=== PATIENT | female | born 1960 | race Caucasian/White ===

== ENCOUNTER 2016-07-07 19:04 | Inpatient (IN) | payer MEDICARE, OTHER ==
[~2016-07-07] VITALS: Ht 157.5 cm; Wt 98.0 kg
[~2016-07-07 19:04] MED LIST: CIPR500T94 PO; CYCL10TA2 PO; DOXE10CA PO; FOLI1TAB16 PO; GLIM4TAB PO; LISI10TA2 PO; PREG75CA PO; QUET100T PO; SITA100T PO; VENL150C PO; VENTOLIN HFA18 GM INH
[2016-07-07 21:21] LABS: BILIRUBIN,URINE NEGATIVE (NEG); GLUCOSE,URINE >=1000 mg/dL (NEG); NITRITE,URINE NEGATIVE (NEG); PROTEIN,URINE 30 mg/dL (NEG-TRACE); UROBILINOGEN,URINE 0.2 mg/dL (0.2 mg/dL)
[2016-07-07 21:21] LABS: BASO % 1 % (0-3); EOS % 1 % (0-3); HEMATOCRIT 31.7 % (36.0-47.0); HEMOGLOBIN 10.5 g/dL (12.0-15.5); LYMPH % 15 % (24-48); MEAN CORPUSCULAR HEMOGLOBIN 26 pg (25-35); MEAN CORPUSCULAR HGB CONC 33 g/dL (31-37); MEAN CORPUSCULAR VOLUME 80 fL (79-100); MONO % 6 % (0-9); NEUT % 77 % (31-73); PLATELET COUNT 140 x10^3/uL (140-400); RED BLOOD COUNT 3.98 x10^6/uL (3.50-5.40); RED CELL DISTRIBUTION WIDTH 16.9 % (11.5-14.5); WHITE BLOOD COUNT 6.5 x10^3/uL (4.0-11.0)
[2016-07-07 21:27] LABS: BARBITURATES NEG (NEG); BENZODIAZEPINES NEG (NEG); CANNABINOIDS NEG (NEG); COCAINE NEG (NEG); ETHANOL, URINE NEG (NEG); METHADONE NEG (NEG); OPIATES NEG (NEG); PHENCYCLIDINE NEG (NEG)
[2016-07-07 21:28] LABS: WBC,URINE 0 /HPF (0-4)
[2016-07-07 21:29] LABS: BACTERIA,URINE 0 /HPF (0-FEW); SQUAMOUS EPITHELIAL CELL,UR OCC /LPF
[2016-07-07 21:34] LABS: CALCIUM 9.4 mg/dL (8.5-10.1); CREATININE 1.2 mg/dL (0.6-1.0); GFR 46.5; POTASSIUM 4.2 mmol/L (3.5-5.1)
[2016-07-07 21:37] LABS: ALBUMIN 2.6 g/dL (3.4-5.0); DIRECT BILIRUBIN 0.1 mg/dL (0.0-0.2); TOTAL BILIRUBIN 0.3 mg/dL (0.2-1.0); TOTAL PROTEIN 7.3 g/dL (6.4-8.2)
[2016-07-07 21:39] LABS: ALBUMIN 2.6 g/dL (3.4-5.0); ALBUMIN/GLOBULIN RATIO 0.5 (1.0-1.7); TOTAL BILIRUBIN 0.3 mg/dL (0.2-1.0); TOTAL PROTEIN 7.7 g/dL (6.4-8.2)
--- NOTE | 2016-07-07 22:13 | RAD ---
PROCEDURE CT head and CT cervical spine without intravenous contrast. HISTORY Found on floor by family. Multiple falls. TECHNIQUE Axial images are obtained of the head from the skull base through the vertex without IV contrast Noncontrast CT of the cervical spine was performed. Axial, sagittal, and coronal reconstructions were obtained. Exposure: One or more of the following individualized dose reduction techniques were utilized for this examination: 1. Automated exposure control. 2. Adjustment of the mA and/or kV according to patient size. 3. Use of iterative reconstruction technique. COMPARISON CT head December 22, 2015. FINDINGS CT head: The ventricles are appropriate in size, shape, and location for the patient's age.No obvious intracranial mass, mass-effect, midline shift, hemorrhage or obvious acute infarction is identified.Basilar cisterns are patent. Bone windows demonstrate no acute calvarial abnormality.The visualized paranasal sinuses appear clear. CT C-spine: No acute fracture acute malalignment is identified. No prevertebral soft tissue swelling is seen. Multilevel degeneration is present with facet and uncovertebral hypertrophy as well as degenerative disc disease visualized. IMPRESSION 1. No acute intracranial process. Please note that CT can be relatively insensitive to acute ischemic infarction for up to 24 hours after symptom onset. 2. No acute osseous traumatic injury identified in the cervical spine. Electronically signed by: Abhilash Mancera MD (Jul 07, 2016 22:12:01)
[2016-07-07 22:19] LABS: CREATINE KINASE 102 U/L (26-192); MYOGLOBIN 304 ng/mL (9-82)
--- NOTE | 2016-07-07 22:29 | ED.ADGEN ---
Past Medical History Past Medical History: COPD, Hepatitis, Unknown Additional Past Medical Histor: HEP C AND COPD, UNKNOWN OTHER HX Past Surgical History: Other Additional Past Surgical Histo: unknown Alcohol Use: Occasionally Drug Use: None Adult General Chief Complaint Chief Complaint: ALTERED MENTAL STATUS HPI HPI Patient is a 55 year old woman, history of hepatitis C, COPD, type 2 diabetes mellitus, who presents emergency department via EMS with report of altered mental status. Ramus report, patient was found lying on the ground by family, patient states that she's had several falls, is complaining of pain in her left knee and left ankle. Patient is able to state her name and location however she believes is 2019, and cannot give any information regarding the events of brought her here today. C-collar was placed in the ED. She is denying any other complaints at this time. Denies any ingestions or exposures. Noted be hyperglycemic, glucose of 379 arrival. Review of Systems Review of Systems Constitutional: Denies fever or chills. [] Eyes: Denies change in visual acuity. [] HENT: Denies nasal congestion or sore throat. [] Respiratory: Denies cough or shortness of breath. [] Cardiovascular: Denies chest pain or edema. [] GI: Denies abdominal pain, nausea, vomiting, bloody stools or diarrhea. [] : Denies dysuria. [] Musculoskeletal: Denies back pain, complaining of pain in the left ankle and left knee. Integument: Denies rash. [] Neurologic: Denies headache, focal weakness or sensory changes. [] Endocrine: Denies polyuria or polydipsia. [] Lymphatic: Denies swollen glands. [] Psychiatric: Denies depression or anxiety. [] Current Medications Current Medications Current Medications Medications (Trade) Dose Ordered Sig/Ines Start Time Stop Time Status Last Admin Dose Admin Dextrose 12.5 gm PRN Q15MIN PRN 07/08/16 01:00 Insulin Aspart (Novolog) 0-5 UNITS TIDWMEALS 07/08/16 08:00 Ondansetron HCl (Zofran) 4 mg PRN Q8HRS PRN 07/08/16 01:00 07/09/16 00:59 Sodium Chloride (Iv Sodium Chloride 0.9% 1000ml Bag) 1,000 ml @ 125 mls/hr 1X ONCE 07/08/16 01:00 07/08/16 08:59 Allergies Allergies Allergies Coded Allergies Type Severity Reaction Last Updated Verified No Known Drug Allergies 12/23/15 No Physical Exam Physical Exam Constitutional: Well developed, well nourished, no acute distress, non-toxic appearance. [] HENT: Normocephalic, atraumatic, bilateral external ears normal, oropharynx moist, no oral exudates, nose normal. [] Eyes: PERRLA, EOMI, conjunctiva normal, no discharge. [] Neck: Normal range of motion, no tenderness, supple, no stridor. [] Cardiovascular:Heart rate regular rhythm, no murmur, S1, S2, soft heart sounds. No rubs or gallops. [] Lungs & Thorax: Diminished breath sounds at bases bilaterally, no rhonchi rales or wheezes appreciated. No chest wall crepitus or tenderness. [] Abdomen: Bowel sounds normal, obese, soft, no tenderness, no masses, no rebound , rigidity or guarding, no pulsatile masses. [] Skin: Warm, dry, no erythema, no rash. Patient noted to have small abrasions across her back and buttocks, no evidence of breakdown, patient with ecchymosis noted over the left buttock extending in the left hip area, with mild tenderness in this region. [] Back: No midline or paraspinal tenderness, no CVA tenderness. [] Extremities: Abrasions noted on the medial aspect of the left knee, patient with tenderness to palpation left ankle and left knee, no bony point tenderness or crepitus,, no cyanosis, no clubbing, ROM intact, no edema. [] Neurologic: Alert and oriented X 3, normal motor function, normal sensory function, no focal deficits noted. [] Psychologic: Affect normal, judgement normal, mood normal. [] Current Patient Data Vital Signs Vital Signs Date Time Temp Pulse Resp B/P Pulse Ox O2 Delivery O2 Flow Rate FiO2 07/07/16 19:15 97.9 100 18 116/80 94 Room Air 97.9 Lab Values Laboratory Tests Test 07/07/16 19:40 07/07/16 19:50 07/07/16 22:24 07/07/16 23:35 White Blood Count 6.5x10^3/uL (4.0-11.0) Red Blood Count 3.98x10^6/uL (3.50-5.40) Hemoglobin 10.5g/dL (12.0-15.5) L Hematocrit 31.7% (36.0-47.0) L Mean Corpuscular Volume 80fL (79-100) Mean Corpuscular Hemoglobin 26pg (25-35) Mean Corpuscular Hemoglobin Concent 33g/dL (31-37) Red Cell Distribution Width 16.9% (11.5-14.5) H Platelet Count 140x10^3/uL (140-400) Neutrophils (%) (Auto) 77% (31-73) H Lymphocytes (%) (Auto) 15% (24-48) L Monocytes (%) (Auto) 6% (0-9) Eosinophils (%) (Auto) 1% (0-3) Basophils (%) (Auto) 1% (0-3) Neutrophils # (Auto) 5.0x10^3uL (1.8-7.7) Lymphocytes # (Auto) 1.0x10^3/uL (1.0-4.8) Monocytes # (Auto) 0.4x10^3/uL (0.0-1.1) Eosinophils # (Auto) 0.1x10^3/uL (0.0-0.7) Basophils # (Auto) 0.0x10^3/uL (0.0-0.2) Sodium Level 135mmol/L (136-145) L Potassium Level 4.2mmol/L (3.5-5.1) Chloride Level 100mmol/L (98-107) Carbon Dioxide Level 26mmol/L (21-32) Anion Gap 9 (6-14) Blood Urea Nitrogen 37mg/dL (7-20) H Creatinine 1.2mg/dL (0.6-1.0) H Estimated GFR (Cockcroft-Gault) 46.5 BUN/Creatinine Ratio 31 (6-20) H Glucose Level 379mg/dL (70-99) H Calcium Level 9.4mg/dL (8.5-10.1) Total Bilirubin 0.3mg/dL (0.2-1.0) Direct Bilirubin 0.1mg/dL (0.0-0.2) Aspartate Amino Transferase (AST) 34U/L (15-37) Alanine Aminotransferase (ALT) 41U/L (14-59) Alkaline Phosphatase 160U/L (46-116) H Creatine Kinase 102U/L (26-192) Myoglobin 304ng/mL (9-82) H Troponin I Quantitative < 0.017ng/mL (0.000-0.055) Total Protein 7.3g/dL (6.4-8.2) Albumin 2.6g/dL (3.4-5.0) L Albumin/Globulin Ratio 0.5 (1.0-1.7) L Ethyl Alcohol Level < 10mg/dL (0-10) Urine Collection Type U cath Urine Color Yellow Urine Clarity Clear Urine pH 5.0 Urine Specific [place] 1.025 Urine Protein 30mg/dL (NEG-TRACE) Urine Glucose (UA) >=1000mg/dL (NEG) Urine Ketones (Stick) Negativemg/dL (NEG) Urine Blood Small (NEG) Urine Nitrite Negative (NEG) Urine Bilirubin Negative (NEG) Urine Urobilinogen Dipstick 0.2mg/dL (0.2 mg/dL) Urine Leukocyte Esterase Negative (NEG) Urine RBC 3-5/HPF (0-2) Urine WBC 0/HPF (0-4) Urine Squamous Epithelial Cells Occ/LPF Urine Amorphous Sediment Present/HPF Urine Bacteria 0/HPF (0-FEW) Urine Opiates Screen Neg (NEG) Urine Methadone Screen Neg (NEG) Urine Barbiturates Neg (NEG) Urine Phencyclidine Screen Neg (NEG) Urine Amphetamine/Methamphetamine Neg (NEG) Urine Benzodiazepines Screen Neg (NEG) Urine Cocaine Screen Neg (NEG) Urine Cannabinoids Screen Neg (NEG) Urine Ethyl Alcohol Neg (NEG) O2 Saturation 94% (92-99) Arterial Blood pH 7.39 (7.35-7.45) Arterial Blood pCO2 at Patient Temp 42mmHg (35-46) Arterial Blood pO2 at Patient Temp 71mmHg (75-108) L Arterial Blood HCO3 25mmol/L (21-28) Arterial Blood Base Excess 0mmol/L (-3-3) FiO2 21 Lactic Acid Level 1.3mmol/L (0.4-2.0) Ammonia 21mcmol/L (11-34) Laboratory Tests 07/07/16 19:40 Laboratory Tests 07/07/16 19:40 EKG EKG EC: Sinus tachycardia, heart rate 101 bpm, upright axis, QTC of 429, ND 152, QRS of 84, moderate baseline artifact noted, aside from tachycardia, no other specific ECG abnormalities identified. Abnormal ECG, does not meet STEMI criteria. As interpreted by me. [] Radiology/Procedures Radiology/Procedures [] [facility] [address] [place] [address] IMAGING REPORT Signed PATIENT: WASHINGTON WING ACCOUNT: [id number] : 1960 LOCATION: ER AGE: 55 SEX: F EXAM STATUS: REG ER ORD. PHYSICIAN: LIAM MENDOZA DO REASON: Fall/AMS PROCEDURE: HEAD AND CERVICAL SPINE WO PROCEDURE CT head and CT cervical spine without intravenous contrast. HISTORY Found on floor by family. Multiple falls. TECHNIQUE Axial images are obtained of the head from the skull base through the vertex without IV contrast Noncontrast CT of the cervical spine was performed. Axial, sagittal, and coronal reconstructions were obtained. Exposure: One or more of the following individualized dose reduction techniques were utilized for this examination: 1. Automated exposure control. 2. Adjustment of the mA and/or kV according to patient size. 3. Use of iterative reconstruction technique. COMPARISON CT head December 22, 2015. FINDINGS CT head: The ventricles are appropriate in size, shape, and location for the patient's age.No obvious intracranial mass, mass-effect, midline shift, hemorrhage or obvious acute infarction is identified.Basilar cisterns are patent. Bone windows demonstrate no acute calvarial abnormality.The visualized paranasal sinuses appear clear. CT C-spine: No acute fracture acute malalignment is identified. No prevertebral soft tissue swelling is seen. Multilevel degeneration is present with facet and uncovertebral hypertrophy as well as degenerative disc disease visualized. IMPRESSION 1. No acute intracranial process. Please note that CT can be relatively insensitive to acute ischemic infarction for up to 24 hours after symptom onset. 2. No acute osseous traumatic injury identified in the cervical spine. Electronically signed by: Abhilash Bishop MD (Jul 07, 2016 22:12:01) DICTATED and SIGNED BY: ABHILASH BISHOP MD DATE: 07/07/162210 CC: FINA ROSALES MD; REJI,ILAM M DO ~ Left knee: Three-view: Mild soft tissue swelling noted, no large effusion, no bony abnormalities identified. As inserted by me. Left ankle: Three-view x-ray: No fracture, subluxation, soft tissue or bony abnormalities identified. Pelvis: Bilateral Two-view hip: No fracture subluxation, no soft tissue or bony abnormalities identified. Course & Med Decision Making Course & Med Decision Making Pertinent Labs and Imaging studies reviewed. (See chart for details) Review of records reveal the patient had admission in December 2015, at that time she had altered mental status with hyperglycemia, urinary tract infection, and was positive for drug abuse. Patient's UDS is negative and the ED today, urine is negative for infection, however presentation appears to be similar. Patient with bruising on her buttocks and small ulcerations of the back, I believe the patient may been lying down for some time in the ground. As stated she is oriented 2-3 at this point, resting comfortably, denying complaints, head CT is negative, x-rays do not reveal any evidence of acute injury. Laboratory studies are consistent with an elevated myoglobin,, elevated proBNP, and mildly elevated creatinine, initiated on IV hydration. Will admit for altered mental status, continue to monitor. No family has arrived at this point. Findings as above discussed with Dr. Storm of internal medicine, patient accepted to her service as a full admission to the medical telemetry floor for continued monitoring, IV hydration, consultation with neurology, bridge orders entered per her request. Dragon Disclaimer Dragon Disclaimer This electronic medical record was generated, in whole or in part, using a voice recognition dictation system. Departure Impression: Primary Impression: Altered mental status Additional Impression: MADELIN (acute kidney injury) Disposition: 09 ADMITTED INPATIENT Admitting Physician: Samuel Storm Condition: IMPROVED Problem Qualifiers Primary Impression: Altered mental status Altered mental status type: unspecified Qualified Code: R41.82 - Altered mental status, unspecified LIAM MENDOZA DO Jul 07, 2016 22:29
[2016-07-07 22:44] LABS: HCO3 ABG 25 mmol/L (21-28); PCO2 ABG 42 mmHg (35-46); PH ABG 7.39 (7.35-7.45); PO2 ABG 71 mmHg (75-108); SAT O2 ABG 94 % (92-99)
[2016-07-07 22:45] LABS: FIO2 ABG 21
[2016-07-07] MEDS ORDERED: IV NORMAL SALINE 500ML BAG 500 ML IV ONE (23:45)
[2016-07-08] VITALS (8 sets, daily range): BP systolic 124–157; BP diastolic 75–91
[2016-07-08] MEDS ORDERED: IV NORMAL SALINE 1000ML BAG 1,000 ML IV ONE (01:00)
[2016-07-08] MEDS ORDERED: ONDANSETRON PF 4 MG/2 ML VIAL. IV PRN ×2 (01:00→10:12)
[2016-07-08] MEDS ORDERED: DEXTROSE 50% 25 GM / 50ML DISP.SYRIN. IV PRN ×2 (01:00→18:00)
--- NOTE | 2016-07-08 02:09 | EKG ---
[facility] [address] [place] [address] Test Date: 2016-07-07 Test Time: 19:12:13 Pat Name: WASHINGTON WING Department: Room: Gender: F [employer] Supervisor: : 1960 Requested By: STAFF NON Order Number: [id number] Reading MD: Measurements Intervals [place] Rate: 101 P: 43 GA: 152 QRS: 21 QRSD: 84 T: 31 QT: 330 QTc: 429 Interpretive Statements SINUS TACHYCARDIA NO SPECIFIC ECG ABNORMALITIES RI6.01 No previous ECG available for comparison
[2016-07-08] MEDS: ACETAMINOPHEN 325 MG TABLET. PO PRN (07:51)
[2016-07-08] MEDS: INSULIN ASPART 300 UNITS/3 ML INSULN.PEN SQ SCH ×3 (07:53→16:31)
--- NOTE | 2016-07-08 08:14 | RAD ---
Indication pain associated with a fall. AP views of the pelvis were obtained as well as a targeted AP and frog leg views of both hips No acute bony finding is seen
--- NOTE | 2016-07-08 08:26 | RAD ---
Indication knee pain and swelling associated with a fall. AP oblique and lateral views of the right knee were obtained. There is a joint effusion. There are mild degenerative changes involving the knee. An acute bony finding is not seen.
--- NOTE | 2016-07-08 08:30 | RAD ---
Indication chest pain associated with a fall. A single view of the chest was obtained and is compared to an exam 12/22/2015. Heart size is within normal limits. The pulmonary vasculature is normal. There is now a nodular density in the right hemithorax not seen previously. This has a relatively benign appearance on plain film and may reflect an area of atelectasis. The appearance is atypical for infection. Follow-up imaging should be considered. Significant pleural fluid is not seen and is no pneumothorax. IMPRESSION: Nodular opacity in the right hemithorax on today's exam. The etiology is not clear. Follow-up imaging should be considered
[2016-07-08 09:06] LABS: OBC FLU VALID
[2016-07-08] MEDS ORDERED: CYCLOBENZAPRINE 10 MG TABLET. PO PRN (10:15)
[2016-07-08] MEDS ORDERED: IOHEXOL 300 MG/ML 75 ML VIAL IV ONE (10:30)
[2016-07-08] MEDS: PREGABALIN 75 MG CAPSULE PO SCH ×2 (10:32→20:38)
[2016-07-08] MEDS: LISINOPRIL 10 MG TABLET PO SCH ×2 (10:33→20:37)
[2016-07-08] MEDS: FOLIC ACID 1 MG TABLET PO SCH (10:36)
[2016-07-08] MEDS: LINAGLIPTIN 5 MG TABLET PO SCH (10:36)
[2016-07-08] MEDS: VENLAFAXINE XR 37.5 MG CAP.ER.24H. PO SCH (10:37)
--- NOTE | 2016-07-08 11:28 | RAD ---
Indication evaluate right nodular opacity. Contrast imaging through the chest was performed. 60 cc of Omnipaque 300 was administered intravenously. Note is made of a plain film examination of the chest one day earlier demonstrating a nodular opacity in the right lung. Note is made of a previous CT examination of the chest 12 years ago. Imaging through the upper abdomen is unremarkable. Clips are noted in the gallbladder fossa. The thoracic aorta appears unremarkable. There is some coronary artery calcification. There is no significant hilar or mediastinal adenopathy. A dominant parenchymal mass in either lung is not seen. Corresponding to the nodular opacity on plain film is a focus of atelectasis pneumonia or scar in the right middle lobe just below the fissure. The appearance is not typical or suggestive of neoplastic disease. An additional parenchymal finding is not seen. IMPRESSION: Atelectasis scar or pneumonia in the right middle lobe accounting for the finding on plain film PQRS Compliance Statement: One or more of the following individualized dose reduction techniques were utilized for this examination: 1. Automated exposure control 2. Adjustment of the mA and/or kV according to patient size 3. Use of iterative reconstruction technique
--- NOTE | 2016-07-08 12:16 | PDOC1 ---
History and Physical Date of Admission Date of Admission DATE: 07/08/16 TIME: 12:10 Identification/Chief Complaint Chief Complaint faLL, WEAK Source Source: Caregiver, Chart review, Patient History of Present Illness History of Present Illness 55 y/o female, heavy set, lives at home with shifting care givers, yesterday she fell from chair to ground and could not get up,. caregiver had trouble helping her, pt felt she was "a nodd;e". Admitted here bec of gen weakness and element of rhabdo on labs. CPK maybe in the 200-300 range, hx hep C , COPD on home O2 24/ at 4.5 L at home, poor historian, quite unkempt. Adamant she does not want to go to rehab upon dc. Prev in the past, falls, UTI, COPD but now DOES NOT have UTI. GEtting IVF for rhabdo, Incidental lung nodule on R hemithorax that was not there in prior imaging, SMoker, down to 9-10 cigs a day - agreeable to CT scan to further evaluate. Crea 1,.2, GFR 60s Past Medical History Cardiovascular: No pertinent hx, HTN Hepatobiliary: No pertinent hx Psych: No pertinent hx Musculoskeletal: low back pain Endocrine: Diabetes Past Surgical History Past Surgical History: No pertinent history Family History Family History: No Significant Social History Smoke: <1 pack per day ALCOHOL: social Drugs: Marijuana Current Problem List Problem List Problems Medical Problems: (1) MADELIN (acute kidney injury) Status: Acute (2) Altered mental status Status: Acute Problems: Current Medications Current Medications Current Medications Sodium Chloride 500 ml @ 500 mls/hr 1X ONCE IV Last administered on 23:45; Start 07/07/16 at 23:45; Stop 07/08/16 at 00:44; Status DC Sodium Chloride (Iv Sodium Chloride 0.9% 1000ml Bag) 1,000 ml @ 125 mls/hr 1X ONCE IV Last administered on 07/08/16 02:59; Start 07/08/16 at 01:00; Stop at 08:59; Status DC Ondansetron HCl (Zofran) 4 mg PRN Q8HRS PRN IV NAUSEA/VOMITING; Start 07/08/16 at 01:00; Stop 07/08/16 at 10:15; Status DC Insulin Aspart (Novolog) 0-5 UNITS TIDWMEALS SQ Last administered on 07/08/16 07:53; Start 07/08/16 at 08:00 Dextrose 12.5 gm PRN Q15MIN PRN IV SEE COMMENTS; Start 07/08/16 at 01:00 Acetaminophen (Tylenol) 650 mg PRN Q6HRS PRN PO MILD PAIN / TEMP Last administered on 07/08/16 07:51; Start 07/08/16 at 07:45 Ondansetron HCl (Zofran) 4 mg PRN Q6HRS PRN IV NAUSEA/VOMITING; Start 07/08/16 at 10:12 Cyclobenzaprine HCl (Flexeril) 10 mg PRN TID PRN PO spasms; Start 07/08/16 at 10:15 Doxepin HCl (Sinequan) 10 mg QHS PO ; Start 07/08/16 at 21:00 Folic Acid (Folic Acid) 1 mg DAILY PO Last administered on 07/08/16 10:36; Start 07/08/16 at 11:00 Lisinopril (Prinivil) 10 mg BID PO Last administered on 07/08/16 10:33; Start 07/08/16 at 11:00 Pregabalin (Lyrica) 75 mg BID PO Last administered on 07/08/16 10:32; Start at 11:00 Quetiapine Fumarate (SEROquel) 100 mg HS PO ; Start 07/08/16 at 21:00 Non-Formulary Medication 2 puff QID INH FOR ASTHMA; Start 07/08/16 at 13:00; Status UNV Glimepiride (Amaryl) 4 mg BID PO ; Start 07/09/16 at 11:00 Linagliptin (Tradjenta) 5 mg DAILY PO Last administered on 07/08/16 10:36; Start 07/08/16 at 11:00 Venlafaxine HCl (Effexor Xr) 225 mg DAILY PO Last administered on 07/08/16 10: 37; Start 07/08/16 at 11:00 Iohexol (Omnipaque 300 Mg/ml) 60 ml 1X ONCE IV Last administered on 07/08/16 10:51; Start 07/08/16 at 10:30; Stop 07/08/16 at 10:31; Status DC Albuterol Sulfate (Ventolin Neb Soln) 2.5 mg RTQID NEB ; Start 07/08/16 at 12:00 Active Scripts Active Cipro (Ciprofloxacin Hcl) 500 Mg Tablet 1 Tab PO BID Reported Ventolin Hfa Inhaler (Albuterol Sulfate) 18 Gm Hfa.aer.ad 2 Puff INH QID Folic Acid 1 Mg Tablet 1 Tab PO DAILY Cyclobenzaprine Hcl 10 Mg Tablet 1 Tab PO TID Doxepin Hcl 10 Mg Capsule 1 Cap PO QHS Quetiapine Fumarate 100 Mg Tablet 100 Mg PO HS Effexor Xr (Venlafaxine Hcl) 150 Mg Cap.er.24h 225 Mg PO DAILY Lyrica (Pregabalin) 75 Mg Capsule 75 Mg PO BID Januvia (Sitagliptin Phosphate) 100 Mg Tablet 1 Tab PO DAILY Amaryl (Glimepiride) 4 Mg Tablet 1 Tab PO BID Lisinopril 10 Mg Tablet 10 Mg PO BID Allergies Allergies: Coded Allergies: No Known Drug Allergies (Unverified , 12/23/15) ROS General: YES: Other (weakness) PSYCHOLOGICAL ROS: No: Anxiety, Behavioral Disorder, Concentration difficultie , Decreased libido, Depression, Disorientation, Hallucinations, Hostility, Irritablity, Memory difficulties, Mood Swings, Obsessive thoughts, Other, Physical abuse, Sexual abuse, Sleep disturbances, Suicidal ideation Eyes: No Blurry vision, No Decreased vision, No Double vision, No Dry eyes, No Excessive tearing, No Eye Pain, No Itchy Eyes, No Loss of vision, No Other, No Photophobia, No Scotomata, No Uses contacts, No Uses glasses HEENT: No: Epistaxis, Heacaches, Hearing change, Nasal congestion, Nasal discharge, Oral lesions, Other, Sinus pain, Sneezing, Snoring, Sore Throat, Tinnitus, Vertigo, Visual Changes, Vocal changes ALLERGY AND IMMUNOLOGY: No: Hives, Insect Bite Sensitivity, Itchy/Watery Eyes, Nasal Congestion, Other, Post Nasal Drip, Seasonal Allergies Hematological and Lymphatic: No: Bleeding Problems, Blood Clots, Blood Transfusions, Brusing, Night Sweats, Other, Pallor, Swollen Lymph Nodes ENDOCRINE: No: Breast Changes, Galactorrhea, Hair Pattern Changes, Hot Flashes , Malaise/lethargy, Mood Swings, Other, Palpitations, Polydipsia/polyuria, Skin Changes, Temperature Intolerance, Unexpected Weight Changes Respiratory: YES: Cough, SOB with excertion, Shortness of breath, No: Hemoptysis, Orthopnea, Other, Pleuritic Pain, Sputum Changes, Stridor, Tachypnea, Wheezing Cardiovascular: No Chest Pain, No Edema, No Lt Headedness, No Orthopnea, No Other, No Palpitations, No Paroxysmal Noc. Dyspnea Gastrointestinal: No Abdominal Pain, No Constipation, No Diarrhea, No Hematochezia, No Melena, No Nausea, No Other, No Vomiting Genitourinary: No , No , No , No , No , No , No , No Discharge, No Dysuria, No Flank Pain, No Frequency, No Hematuria, No Incontinence, No Other, No Pain, No Retention, No Urgency Musculoskeletal: No Gait Disturbance, No Joint Pain, No Joint Stiffness, No Joint Swelling, No Muscle Pain, No Muscular Weakness, No Other, No Pain In:, No Swelling In: Neurological: No Behavorial Changes, No Bowel/Bladder ControlChng, No Confusion , No Dizziness, No Gait Disturbance, No Headaches, No Impaired Coord/balance, No Memory Loss, No Numbness/Tingling, No Other, No Seizures, No Speech Problems , No Tremors, No Visual Changes, No Weakness Skin: No Acne, No Dry Skin, No Eczema, No Hair Changes, No Lumps, No Mole Changes, No Mottling, No Nail Changes, No Other, No Pruritus, No Rash, No Skin Lesion Changes Physical Exam General: Alert HEENT: Atraumatic, PERRLA Lungs: Normal air movement, Other (dec BS, no wheezing) Cardiovascular: S1, S2 Breasts: Normal, Rt breast nml w/o mass, Lt breast nml w/o mass, Nipples normal Rectal Exam: not examined PELVIC: Nml ext genitalia Extremities: No clubbing, No cyanosis, No edema, Normal pulses, No tenderness/ swelling Skin: No rashes, No breakdown, No significant lesion Neuro: Normal gait, Normal speech, Strength at 5/5 X4 ext, Normal tone, Sensation intact, Cranial nerves 3-12 NL, Reflexes 2+ Psych/Mental Status: Mental status NL, Mood NL Vitals Vitals Vital Signs Date Time Temp Pulse Resp B/P Pulse Ox O2 Delivery O2 Flow Rate FiO2 07/08/16 10:57 97.7 92 18 149/91 93 Nasal Cannula 2.0 97.7 Labs Labs Laboratory Tests Test 07/07/16 19:40 07/07/16 19:50 07/07/16 22:24 07/07/16 23:35 White Blood Count 6.5x10^3/uL (4.0-11.0) Red Blood Count 3.98x10^6/uL (3.50-5.40) Hemoglobin 10.5g/dL (12.0-15.5) Hematocrit 31.7% (36.0-47.0) Mean Corpuscular Volume 80fL (79-100) Mean Corpuscular Hemoglobin 26pg (25-35) Mean Corpuscular Hemoglobin Concent 33g/dL (31-37) Red Cell Distribution Width 16.9% (11.5-14.5) Platelet Count 140x10^3/uL (140-400) Neutrophils (%) (Auto) 77% (31-73) Lymphocytes (%) (Auto) 15% (24-48) Monocytes (%) (Auto) 6% (0-9) Eosinophils (%) (Auto) 1% (0-3) Basophils (%) (Auto) 1% (0-3) Neutrophils # (Auto) 5.0x10^3uL (1.8-7.7) Lymphocytes # (Auto) 1.0x10^3/uL (1.0-4.8) Monocytes # (Auto) 0.4x10^3/uL (0.0-1.1) Eosinophils # (Auto) 0.1x10^3/uL (0.0-0.7) Basophils # (Auto) 0.0x10^3/uL (0.0-0.2) Sodium Level 135mmol/L (136-145) Potassium Level 4.2mmol/L (3.5-5.1) Chloride Level 100mmol/L (98-107) Carbon Dioxide Level 26mmol/L (21-32) Anion Gap 9 (6-14) Blood Urea Nitrogen 37mg/dL (7-20) Creatinine 1.2mg/dL (0.6-1.0) Estimated GFR (Cockcroft-Gault) 46.5 BUN/Creatinine Ratio 31 (6-20) Glucose Level 379mg/dL (70-99) Calcium Level 9.4mg/dL (8.5-10.1) Total Bilirubin 0.3mg/dL (0.2-1.0) Direct Bilirubin 0.1mg/dL (0.0-0.2) Aspartate Amino Transf (AST/SGOT) 34U/L (15-37) Alanine Aminotransferase (ALT/SGPT) 41U/L (14-59) Alkaline Phosphatase 160U/L (46-116) Creatine Kinase 102U/L (26-192) Myoglobin 304ng/mL (9-82) Troponin I Quantitative < 0.017ng/mL (0.000-0.055) Total Protein 7.3g/dL (6.4-8.2) Albumin 2.6g/dL (3.4-5.0) Albumin/Globulin Ratio 0.5 (1.0-1.7) Ethyl Alcohol Level < 10mg/dL (0-10) Urine Collection Type U cath Urine Color Yellow Urine Clarity Clear Urine pH 5.0 Urine Specific [place] 1.025 Urine Protein 30mg/dL (NEG-TRACE) Urine Glucose (UA) >=1000mg/dL (NEG) Urine Ketones (Stick) Negativemg/dL (NEG) Urine Blood Small (NEG) Urine Nitrite Negative (NEG) Urine Bilirubin Negative (NEG) Urine Urobilinogen Dipstick 0.2mg/dL (0.2 mg/dL) Urine Leukocyte Esterase Negative (NEG) Urine RBC 3-5/HPF (0-2) Urine WBC 0/HPF (0-4) Urine Squamous Epithelial Cells Occ/LPF Urine Amorphous Sediment Present/HPF Urine Bacteria 0/HPF (0-FEW) Urine Opiates Screen Neg (NEG) Urine Methadone Screen Neg (NEG) Urine Barbiturates Neg (NEG) Urine Phencyclidine Screen Neg (NEG) Urine Amphetamine/Methamphetamine Neg (NEG) Urine Benzodiazepines Screen Neg (NEG) Urine Cocaine Screen Neg (NEG) Urine Cannabinoids Screen Neg (NEG) Urine Ethyl Alcohol Neg (NEG) O2 Saturation 94% (92-99) Arterial Blood pH 7.39 (7.35-7.45) Arterial Blood pCO2 at Patient Temp 42mmHg (35-46) Arterial Blood pO2 at Patient Temp 71mmHg (75-108) Arterial Blood HCO3 25mmol/L (21-28) Arterial Blood Base Excess 0mmol/L (-3-3) FiO2 21 Lactic Acid Level 1.3mmol/L (0.4-2.0) Ammonia 21mcmol/L (11-34) Test 07/08/16 03:46 07/08/16 05:00 07/08/16 07:48 07/08/16 12:02 Glucose (Fingerstick) 202mg/dL (70-99) 159mg/dL (70-99) 213mg/dL (70-99) Influenza Type A Antigen Negative (NEGATIVE) Influenza Type B Antigen Negative (NEGATIVE) Laboratory Tests Test 07/07/16 19:40 07/07/16 19:50 07/07/16 22:24 07/07/16 23:35 White Blood Count 6.5x10^3/uL (4.0-11.0) Red Blood Count 3.98x10^6/uL (3.50-5.40) Hemoglobin 10.5g/dL (12.0-15.5) Hematocrit 31.7% (36.0-47.0) Mean Corpuscular Volume 80fL (79-100) Mean Corpuscular Hemoglobin 26pg (25-35) Mean Corpuscular Hemoglobin Concent 33g/dL (31-37) Red Cell Distribution Width 16.9% (11.5-14.5) Platelet Count 140x10^3/uL (140-400) Neutrophils (%) (Auto) 77% (31-73) Lymphocytes (%) (Auto) 15% (24-48) Monocytes (%) (Auto) 6% (0-9) Eosinophils (%) (Auto) 1% (0-3) Basophils (%) (Auto) 1% (0-3) Neutrophils # (Auto) 5.0x10^3uL (1.8-7.7) Lymphocytes # (Auto) 1.0x10^3/uL (1.0-4.8) Monocytes # (Auto) 0.4x10^3/uL (0.0-1.1) Eosinophils # (Auto) 0.1x10^3/uL (0.0-0.7) Basophils # (Auto) 0.0x10^3/uL (0.0-0.2) Sodium Level 135mmol/L (136-145) Potassium Level 4.2mmol/L (3.5-5.1) Chloride Level 100mmol/L (98-107) Carbon Dioxide Level 26mmol/L (21-32) Anion Gap 9 (6-14) Blood Urea Nitrogen 37mg/dL (7-20) Creatinine 1.2mg/dL (0.6-1.0) Estimated GFR (Cockcroft-Gault) 46.5 BUN/Creatinine Ratio 31 (6-20) Glucose Level 379mg/dL (70-99) Calcium Level 9.4mg/dL (8.5-10.1) Total Bilirubin 0.3mg/dL (0.2-1.0) Direct Bilirubin 0.1mg/dL (0.0-0.2) Aspartate Amino Transf (AST/SGOT) 34U/L (15-37) Alanine Aminotransferase (ALT/SGPT) 41U/L (14-59) Alkaline Phosphatase 160U/L (46-116) Creatine Kinase 102U/L (26-192) Myoglobin 304ng/mL (9-82) Troponin I Quantitative < 0.017ng/mL (0.000-0.055) Total Protein 7.3g/dL (6.4-8.2) Albumin 2.6g/dL (3.4-5.0) Albumin/Globulin Ratio 0.5 (1.0-1.7) Ethyl Alcohol Level < 10mg/dL (0-10) Urine Collection Type U cath Urine Color Yellow Urine Clarity Clear Urine pH 5.0 Urine Specific [place] 1.025 Urine Protein 30mg/dL (NEG-TRACE) Urine Glucose (UA) >=1000mg/dL (NEG) Urine Ketones (Stick) Negativemg/dL (NEG) Urine Blood Small (NEG) Urine Nitrite Negative (NEG) Urine Bilirubin Negative (NEG) Urine Urobilinogen Dipstick 0.2mg/dL (0.2 mg/dL) Urine Leukocyte Esterase Negative (NEG) Urine RBC 3-5/HPF (0-2) Urine WBC 0/HPF (0-4) Urine Squamous Epithelial Cells Occ/LPF Urine Amorphous Sediment Present/HPF Urine Bacteria 0/HPF (0-FEW) Urine Opiates Screen Neg (NEG) Urine Methadone Screen Neg (NEG) Urine Barbiturates Neg (NEG) Urine Phencyclidine Screen Neg (NEG) Urine Amphetamine/Methamphetamine Neg (NEG) Urine Benzodiazepines Screen Neg (NEG) Urine Cocaine Screen Neg (NEG) Urine Cannabinoids Screen Neg (NEG) Urine Ethyl Alcohol Neg (NEG) O2 Saturation 94% (92-99) Arterial Blood pH 7.39 (7.35-7.45) Arterial Blood pCO2 at Patient Temp 42mmHg (35-46) Arterial Blood pO2 at Patient Temp 71mmHg (75-108) Arterial Blood HCO3 25mmol/L (21-28) Arterial Blood Base Excess 0mmol/L (-3-3) FiO2 21 Lactic Acid Level 1.3mmol/L (0.4-2.0) Ammonia 21mcmol/L (11-34) Test 07/08/16 03:46 07/08/16 05:00 07/08/16 07:48 07/08/16 12:02 Glucose (Fingerstick) 202mg/dL (70-99) 159mg/dL (70-99) 213mg/dL (70-99) Influenza Type A Antigen Negative (NEGATIVE) Influenza Type B Antigen Negative (NEGATIVE) VTE Prophylaxis Ordered VTE Prophylaxis Devices: Yes VTE Pharmacological Prophylaxi: Yes Assessment/Plan Assessment/Plan 1. FAll with mild rhabdo 2. Recurrent falls 3. EGn weakness 4. Incidental R lung nodule in R hemithorax in a smoker 5. Active smoker, down to 9-10 cigs a day 6. Obesity w ith mild to mod PCM 7. HTN 8. 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 Hx hep C PLAn: IVF Re check CPK daily CTs can chest with iV contrast further delineate lung nodule Re checl BMP daily (cera and GFR) PT/OT Will need rehab- SW consult NIcotinr prn SSI high dose dw pt MDM complex If ct scan shows some concerning issues, will involve pulmo RADHA OLIVER MD Jul 08, 2016 12:16
[2016-07-08] MEDS: ALBUTEROL SULFATE 2.5 MG/3 ML NEBU. NEB SCH ×3 (12:33→20:16)
[2016-07-08] MEDS ORDERED: NON FORMULARY ITEM (Albuterol Sulfate (Ventolin Hfa Inhaler) 2 PUFF) INH SCH (13:00)
--- NOTE | 2016-07-08 15:15 | RAD ---
Indication pain associated with a fall. AP oblique and lateral views of the right knee were obtained. There is some mild soft tissue swelling. An acute bony finding is not seen. A well-corticated bone fragment is seen adjacent to the tip of the lateral malleolus having a chronic appearance. IMPRESSION: No acute bony finding
[2016-07-08] MEDS ORDERED: ALBUTEROL SULFATE 2.5 MG/3 ML NEBU. NEB PRN (17:45)
[2016-07-08] MEDS ORDERED: NICOTINE 21MG PATCH. TD PRN (18:00)
[2016-07-08] MEDS: AZITHROMYCIN 250 MG TABLET PO SCH (18:30)
--- NOTE | 2016-07-08 19:13 | PDOC2 ---
NEUROLOGY CONSULT Date of Admission Date of Admission Full Report Dictated DATE: 07/08/16 TIME: 19:11 Current Medications Current Medications Current Medications Sodium Chloride 500 ml @ 500 mls/hr 1X ONCE IV Last administered on 23:45; Start 07/07/16 at 23:45; Stop 07/08/16 at 00:44; Status DC Sodium Chloride (Iv Sodium Chloride 0.9% 1000ml Bag) 1,000 ml @ 125 mls/hr 1X ONCE IV Last administered on 07/08/16 02:59; Start 07/08/16 at 01:00; Stop at 08:59; Status DC Ondansetron HCl (Zofran) 4 mg PRN Q8HRS PRN IV NAUSEA/VOMITING; Start 07/08/16 at 01:00; Stop 07/08/16 at 10:15; Status DC Insulin Aspart (Novolog) 0-5 UNITS TIDWMEALS SQ Last administered on 07/08/16 16:31; Start 07/08/16 at 08:00; Stop 07/08/16 at 17:54; Status DC Dextrose 12.5 gm PRN Q15MIN PRN IV SEE COMMENTS; Start 07/08/16 at 01:00 Acetaminophen (Tylenol) 650 mg PRN Q6HRS PRN PO MILD PAIN / TEMP Last administered on 07/08/16 07:51; Start 07/08/16 at 07:45 Ondansetron HCl (Zofran) 4 mg PRN Q6HRS PRN IV NAUSEA/VOMITING; Start 07/08/16 at 10:12 Cyclobenzaprine HCl (Flexeril) 10 mg PRN TID PRN PO spasms; Start 07/08/16 at 10:15 Doxepin HCl (Sinequan) 10 mg QHS PO ; Start 07/08/16 at 21:00 Folic Acid (Folic Acid) 1 mg DAILY PO Last administered on 07/08/16 10:36; Start 07/08/16 at 11:00 Lisinopril (Prinivil) 10 mg BID PO Last administered on 07/08/16 10:33; Start 07/08/16 at 11:00 Pregabalin (Lyrica) 75 mg BID PO Last administered on 07/08/16 10:32; Start at 11:00 Quetiapine Fumarate (SEROquel) 100 mg HS PO ; Start 07/08/16 at 21:00 Non-Formulary Medication 2 puff QID INH FOR ASTHMA; Start 07/08/16 at 13:00; Status UNV Glimepiride (Amaryl) 4 mg BID PO ; Start 07/09/16 at 11:00 Linagliptin (Tradjenta) 5 mg DAILY PO Last administered on 07/08/16 10:36; Start 07/08/16 at 11:00 Venlafaxine HCl (Effexor Xr) 225 mg DAILY PO Last administered on 07/08/16 10: 37; Start 07/08/16 at 11:00 Iohexol (Omnipaque 300 Mg/ml) 60 ml 1X ONCE IV Last administered on 07/08/16 10:51; Start 07/08/16 at 10:30; Stop 07/08/16 at 10:31; Status DC Albuterol Sulfate (Ventolin Neb Soln) 2.5 mg RTQID NEB Last administered on 15:42; Start 07/08/16 at 12:00 Albuterol Sulfate (Ventolin Neb Soln) 2.5 mg PRN Q4HRS PRN NEB SHORTNESS OF BREATH; Start 07/08/16 at 17:45 Insulin Aspart (Novolog) 0-9 UNITS TIDWMEALS SQ ; Start 07/09/16 at 08:00 Dextrose 12.5 gm PRN Q15MIN PRN IV SEE COMMENTS; Start 07/08/16 at 18:00 Nicotine (Nicoderm Cq 21mg) 1 patch PRN DAILY PRN TD SMOKING CESSATION; Start 07/08/16 at 18:00 Azithromycin (Zithromax) 500 mg DAILY PO Last administered on 07/08/16 18:30; Start 07/08/16 at 18:30 Active Scripts Active Cipro (Ciprofloxacin Hcl) 500 Mg Tablet 1 Tab PO BID Reported Ventolin Hfa Inhaler (Albuterol Sulfate) 18 Gm Hfa.aer.ad 2 Puff INH QID Folic Acid 1 Mg Tablet 1 Tab PO DAILY Cyclobenzaprine Hcl 10 Mg Tablet 1 Tab PO TID Doxepin Hcl 10 Mg Capsule 1 Cap PO QHS Quetiapine Fumarate 100 Mg Tablet 100 Mg PO HS Effexor Xr (Venlafaxine Hcl) 150 Mg Cap.er.24h 225 Mg PO DAILY Lyrica (Pregabalin) 75 Mg Capsule 75 Mg PO BID Januvia (Sitagliptin Phosphate) 100 Mg Tablet 1 Tab PO DAILY Amaryl (Glimepiride) 4 Mg Tablet 1 Tab PO BID Lisinopril 10 Mg Tablet 10 Mg PO BID Allergies Allergies: Coded Allergies: No Known Drug Allergies (Unverified , 12/23/15) Vitals VITALS Vital Signs Date Time Temp Pulse Resp B/P Pulse Ox O2 Delivery O2 Flow Rate FiO2 07/08/16 15:42 Nasal Cannula 2.0 07/08/16 15:23 97.7 101 18 154/90 93 97.7 Labs Labs Laboratory Tests Test 07/07/16 19:40 07/07/16 19:50 07/07/16 22:24 07/07/16 23:35 White Blood Count 6.5x10^3/uL (4.0-11.0) Red Blood Count 3.98x10^6/uL (3.50-5.40) Hemoglobin 10.5g/dL (12.0-15.5) Hematocrit 31.7% (36.0-47.0) Mean Corpuscular Volume 80fL (79-100) Mean Corpuscular Hemoglobin 26pg (25-35) Mean Corpuscular Hemoglobin Concent 33g/dL (31-37) Red Cell Distribution Width 16.9% (11.5-14.5) Platelet Count 140x10^3/uL (140-400) Neutrophils (%) (Auto) 77% (31-73) Lymphocytes (%) (Auto) 15% (24-48) Monocytes (%) (Auto) 6% (0-9) Eosinophils (%) (Auto) 1% (0-3) Basophils (%) (Auto) 1% (0-3) Neutrophils # (Auto) 5.0x10^3uL (1.8-7.7) Lymphocytes # (Auto) 1.0x10^3/uL (1.0-4.8) Monocytes # (Auto) 0.4x10^3/uL (0.0-1.1) Eosinophils # (Auto) 0.1x10^3/uL (0.0-0.7) Basophils # (Auto) 0.0x10^3/uL (0.0-0.2) Sodium Level 135mmol/L (136-145) Potassium Level 4.2mmol/L (3.5-5.1) Chloride Level 100mmol/L (98-107) Carbon Dioxide Level 26mmol/L (21-32) Anion Gap 9 (6-14) Blood Urea Nitrogen 37mg/dL (7-20) Creatinine 1.2mg/dL (0.6-1.0) Estimated GFR (Cockcroft-Gault) 46.5 BUN/Creatinine Ratio 31 (6-20) Glucose Level 379mg/dL (70-99) Calcium Level 9.4mg/dL (8.5-10.1) Total Bilirubin 0.3mg/dL (0.2-1.0) Direct Bilirubin 0.1mg/dL (0.0-0.2) Aspartate Amino Transf (AST/SGOT) 34U/L (15-37) Alanine Aminotransferase (ALT/SGPT) 41U/L (14-59) Alkaline Phosphatase 160U/L (46-116) Creatine Kinase 102U/L (26-192) Myoglobin 304ng/mL (9-82) Troponin I Quantitative < 0.017ng/mL (0.000-0.055) Total Protein 7.3g/dL (6.4-8.2) Albumin 2.6g/dL (3.4-5.0) Albumin/Globulin Ratio 0.5 (1.0-1.7) Ethyl Alcohol Level < 10mg/dL (0-10) Urine Collection Type U cath Urine Color Yellow Urine Clarity Clear Urine pH 5.0 Urine Specific [place] 1.025 Urine Protein 30mg/dL (NEG-TRACE) Urine Glucose (UA) >=1000mg/dL (NEG) Urine Ketones (Stick) Negativemg/dL (NEG) Urine Blood Small (NEG) Urine Nitrite Negative (NEG) Urine Bilirubin Negative (NEG) Urine Urobilinogen Dipstick 0.2mg/dL (0.2 mg/dL) Urine Leukocyte Esterase Negative (NEG) Urine RBC 3-5/HPF (0-2) Urine WBC 0/HPF (0-4) Urine Squamous Epithelial Cells Occ/LPF Urine Amorphous Sediment Present/HPF Urine Bacteria 0/HPF (0-FEW) Urine Opiates Screen Neg (NEG) Urine Methadone Screen Neg (NEG) Urine Barbiturates Neg (NEG) Urine Phencyclidine Screen Neg (NEG) Urine Amphetamine/Methamphetamine Neg (NEG) Urine Benzodiazepines Screen Neg (NEG) Urine Cocaine Screen Neg (NEG) Urine Cannabinoids Screen Neg (NEG) Urine Ethyl Alcohol Neg (NEG) O2 Saturation 94% (92-99) Arterial Blood pH 7.39 (7.35-7.45) Arterial Blood pCO2 at Patient Temp 42mmHg (35-46) Arterial Blood pO2 at Patient Temp 71mmHg (75-108) Arterial Blood HCO3 25mmol/L (21-28) Arterial Blood Base Excess 0mmol/L (-3-3) FiO2 21 Lactic Acid Level 1.3mmol/L (0.4-2.0) Ammonia 21mcmol/L (11-34) Test 07/08/16 03:46 07/08/16 05:00 07/08/16 07:48 07/08/16 12:02 Glucose (Fingerstick) 202mg/dL (70-99) 159mg/dL (70-99) 213mg/dL (70-99) Influenza Type A Antigen Negative (NEGATIVE) Influenza Type B Antigen Negative (NEGATIVE) Test 07/08/16 16:18 Glucose (Fingerstick) 294mg/dL (70-99) Laboratory Tests Test 07/07/16 19:40 07/07/16 19:50 07/07/16 22:24 07/07/16 23:35 White Blood Count 6.5x10^3/uL (4.0-11.0) Red Blood Count 3.98x10^6/uL (3.50-5.40) Hemoglobin 10.5g/dL (12.0-15.5) Hematocrit 31.7% (36.0-47.0) Mean Corpuscular Volume 80fL (79-100) Mean Corpuscular Hemoglobin 26pg (25-35) Mean Corpuscular Hemoglobin Concent 33g/dL (31-37) Red Cell Distribution Width 16.9% (11.5-14.5) Platelet Count 140x10^3/uL (140-400) Neutrophils (%) (Auto) 77% (31-73) Lymphocytes (%) (Auto) 15% (24-48) Monocytes (%) (Auto) 6% (0-9) Eosinophils (%) (Auto) 1% (0-3) Basophils (%) (Auto) 1% (0-3) Neutrophils # (Auto) 5.0x10^3uL (1.8-7.7) Lymphocytes # (Auto) 1.0x10^3/uL (1.0-4.8) Monocytes # (Auto) 0.4x10^3/uL (0.0-1.1) Eosinophils # (Auto) 0.1x10^3/uL (0.0-0.7) Basophils # (Auto) 0.0x10^3/uL (0.0-0.2) Sodium Level 135mmol/L (136-145) Potassium Level 4.2mmol/L (3.5-5.1) Chloride Level 100mmol/L (98-107) Carbon Dioxide Level 26mmol/L (21-32) Anion Gap 9 (6-14) Blood Urea Nitrogen 37mg/dL (7-20) Creatinine 1.2mg/dL (0.6-1.0) Estimated GFR (Cockcroft-Gault) 46.5 BUN/Creatinine Ratio 31 (6-20) Glucose Level 379mg/dL (70-99) Calcium Level 9.4mg/dL (8.5-10.1) Total Bilirubin 0.3mg/dL (0.2-1.0) Direct Bilirubin 0.1mg/dL (0.0-0.2) Aspartate Amino Transf (AST/SGOT) 34U/L (15-37) Alanine Aminotransferase (ALT/SGPT) 41U/L (14-59) Alkaline Phosphatase 160U/L (46-116) Creatine Kinase 102U/L (26-192) Myoglobin 304ng/mL (9-82) Troponin I Quantitative < 0.017ng/mL (0.000-0.055) Total Protein 7.3g/dL (6.4-8.2) Albumin 2.6g/dL (3.4-5.0) Albumin/Globulin Ratio 0.5 (1.0-1.7) Ethyl Alcohol Level < 10mg/dL (0-10) Urine Collection Type U cath Urine Color Yellow Urine Clarity Clear Urine pH 5.0 Urine Specific [place] 1.025 Urine Protein 30mg/dL (NEG-TRACE) Urine Glucose (UA) >=1000mg/dL (NEG) Urine Ketones (Stick) Negativemg/dL (NEG) Urine Blood Small (NEG) Urine Nitrite Negative (NEG) Urine Bilirubin Negative (NEG) Urine Urobilinogen Dipstick 0.2mg/dL (0.2 mg/dL) Urine Leukocyte Esterase Negative (NEG) Urine RBC 3-5/HPF (0-2) Urine WBC 0/HPF (0-4) Urine Squamous Epithelial Cells Occ/LPF Urine Amorphous Sediment Present/HPF Urine Bacteria 0/HPF (0-FEW) Urine Opiates Screen Neg (NEG) Urine Methadone Screen Neg (NEG) Urine Barbiturates Neg (NEG) Urine Phencyclidine Screen Neg (NEG) Urine Amphetamine/Methamphetamine Neg (NEG) Urine Benzodiazepines Screen Neg (NEG) Urine Cocaine Screen Neg (NEG) Urine Cannabinoids Screen Neg (NEG) Urine Ethyl Alcohol Neg (NEG) O2 Saturation 94% (92-99) Arterial Blood pH 7.39 (7.35-7.45) Arterial Blood pCO2 at Patient Temp 42mmHg (35-46) Arterial Blood pO2 at Patient Temp 71mmHg (75-108) Arterial Blood HCO3 25mmol/L (21-28) Arterial Blood Base Excess 0mmol/L (-3-3) FiO2 21 Lactic Acid Level 1.3mmol/L (0.4-2.0) Ammonia 21mcmol/L (11-34) Test 07/08/16 03:46 07/08/16 05:00 07/08/16 07:48 07/08/16 12:02 Glucose (Fingerstick) 202mg/dL (70-99) 159mg/dL (70-99) 213mg/dL (70-99) Influenza Type A Antigen Negative (NEGATIVE) Influenza Type B Antigen Negative (NEGATIVE) Test 07/08/16 16:18 Glucose (Fingerstick) 294mg/dL (70-99) Assessment/Plan Assessment/Plan Mental status changes have resolved. She appears back to baseline. She has severe right knee pain which limits the use of her right leg. When the knee is isolated the strength of the right hip and ankle are powerful and the left leg is powerful. She has an intention tremor on the left. She appears extremely anxious. CT scan of the head was negative. I do not see any clinical evidence to suggest stroke. Further neurologic investigation is not needed. She may require consultation by an orthopedic surgeon to evaluate nonsurgical options for the right knee pain if this has not previously been none. Please reconsult neurology if we can be of further service. JESSICA NJ MD Jul 08, 2016 19:13
[2016-07-08] MEDS ORDERED: DOXEPIN HCL 10 MG CAPSULE PO SCH (21:00)
[2016-07-08] MEDS ORDERED: QUEtiapine 100 MG TABLET. PO SCH (21:00)
[2016-07-09 03:10] VITALS: BP 133/73
[2016-07-09 05:38] LABS: BASO % 0 % (0-3); EOS % 3 % (0-3); HEMATOCRIT 29.8 % (36.0-47.0); HEMOGLOBIN 9.7 g/dL (12.0-15.5); LYMPH % 23 % (24-48); MEAN CORPUSCULAR HEMOGLOBIN 26 pg (25-35); MEAN CORPUSCULAR HGB CONC 33 g/dL (31-37); MEAN CORPUSCULAR VOLUME 80 fL (79-100); MONO % 9 % (0-9); NEUT % 65 % (31-73); PLATELET COUNT 125 x10^3/uL (140-400); RED BLOOD COUNT 3.72 x10^6/uL (3.50-5.40); RED CELL DISTRIBUTION WIDTH 17.3 % (11.5-14.5); WHITE BLOOD COUNT 4.3 x10^3/uL (4.0-11.0)
[2016-07-09 06:04] LABS: CALCIUM 8.8 mg/dL (8.5-10.1); CREATININE 0.9 mg/dL (0.6-1.0); GFR 64.8; POTASSIUM 4.7 mmol/L (3.5-5.1)
[2016-07-09 07:00] VITALS: BP 147/84
[2016-07-09] MEDS: ALBUTEROL SULFATE 2.5 MG/3 ML NEBU. NEB SCH ×3 (07:41→15:47)
[2016-07-09] MEDS: INSULIN ASPART 300 UNITS/3 ML INSULN.PEN SQ SCH ×2 (08:04→11:43)
[2016-07-09] MEDS: FOLIC ACID 1 MG TABLET PO SCH (08:48)
[2016-07-09] MEDS: LINAGLIPTIN 5 MG TABLET PO SCH (08:48)
[2016-07-09] MEDS: PREGABALIN 75 MG CAPSULE PO SCH (08:48)
[2016-07-09] MEDS: AZITHROMYCIN 250 MG TABLET PO SCH (08:48)
[2016-07-09] MEDS: LISINOPRIL 10 MG TABLET PO SCH (08:48)
[2016-07-09] MEDS: VENLAFAXINE XR 37.5 MG CAP.ER.24H. PO SCH (08:49)
--- NOTE | 2016-07-09 10:05 | PDOC ---
ORTHO PROGRESS NOTES Vitals Vital Signs Date Time Temp Pulse Resp B/P Pulse Ox O2 Delivery O2 Flow Rate FiO2 07/09/16 08:48 77 147/84 07/09/16 07:50 Nasal Cannula 2.0 07/09/16 07:41 91 07/09/16 07:00 97.8 97.8 07/09/16 03:10 20 Labs Laboratory Tests Test 07/07/16 19:40 07/07/16 19:50 07/07/16 22:24 07/07/16 23:35 White Blood Count 6.5x10^3/uL (4.0-11.0) Red Blood Count 3.98x10^6/uL (3.50-5.40) Hemoglobin 10.5g/dL (12.0-15.5) Hematocrit 31.7% (36.0-47.0) Mean Corpuscular Volume 80fL (79-100) Mean Corpuscular Hemoglobin 26pg (25-35) Mean Corpuscular Hemoglobin Concent 33g/dL (31-37) Red Cell Distribution Width 16.9% (11.5-14.5) Platelet Count 140x10^3/uL (140-400) Neutrophils (%) (Auto) 77% (31-73) Lymphocytes (%) (Auto) 15% (24-48) Monocytes (%) (Auto) 6% (0-9) Eosinophils (%) (Auto) 1% (0-3) Basophils (%) (Auto) 1% (0-3) Neutrophils # (Auto) 5.0x10^3uL (1.8-7.7) Lymphocytes # (Auto) 1.0x10^3/uL (1.0-4.8) Monocytes # (Auto) 0.4x10^3/uL (0.0-1.1) Eosinophils # (Auto) 0.1x10^3/uL (0.0-0.7) Basophils # (Auto) 0.0x10^3/uL (0.0-0.2) Sodium Level 135mmol/L (136-145) Potassium Level 4.2mmol/L (3.5-5.1) Chloride Level 100mmol/L (98-107) Carbon Dioxide Level 26mmol/L (21-32) Anion Gap 9 (6-14) Blood Urea Nitrogen 37mg/dL (7-20) Creatinine 1.2mg/dL (0.6-1.0) Estimated GFR (Cockcroft-Gault) 46.5 BUN/Creatinine Ratio 31 (6-20) Glucose Level 379mg/dL (70-99) Calcium Level 9.4mg/dL (8.5-10.1) Total Bilirubin 0.3mg/dL (0.2-1.0) Direct Bilirubin 0.1mg/dL (0.0-0.2) Aspartate Amino Transf (AST/SGOT) 34U/L (15-37) Alanine Aminotransferase (ALT/SGPT) 41U/L (14-59) Alkaline Phosphatase 160U/L (46-116) Creatine Kinase 102U/L (26-192) Myoglobin 304ng/mL (9-82) Troponin I Quantitative < 0.017ng/mL (0.000-0.055) Total Protein 7.3g/dL (6.4-8.2) Albumin 2.6g/dL (3.4-5.0) Albumin/Globulin Ratio 0.5 (1.0-1.7) Ethyl Alcohol Level < 10mg/dL (0-10) Urine Collection Type U cath Urine Color Yellow Urine Clarity Clear Urine pH 5.0 Urine Specific [place] 1.025 Urine Protein 30mg/dL (NEG-TRACE) Urine Glucose (UA) >=1000mg/dL (NEG) Urine Ketones (Stick) Negativemg/dL (NEG) Urine Blood Small (NEG) Urine Nitrite Negative (NEG) Urine Bilirubin Negative (NEG) Urine Urobilinogen Dipstick 0.2mg/dL (0.2 mg/dL) Urine Leukocyte Esterase Negative (NEG) Urine RBC 3-5/HPF (0-2) Urine WBC 0/HPF (0-4) Urine Squamous Epithelial Cells Occ/LPF Urine Amorphous Sediment Present/HPF Urine Bacteria 0/HPF (0-FEW) Urine Opiates Screen Neg (NEG) Urine Methadone Screen Neg (NEG) Urine Barbiturates Neg (NEG) Urine Phencyclidine Screen Neg (NEG) Urine Amphetamine/Methamphetamine Neg (NEG) Urine Benzodiazepines Screen Neg (NEG) Urine Cocaine Screen Neg (NEG) Urine Cannabinoids Screen Neg (NEG) Urine Ethyl Alcohol Neg (NEG) O2 Saturation 94% (92-99) Arterial Blood pH 7.39 (7.35-7.45) Arterial Blood pCO2 at Patient Temp 42mmHg (35-46) Arterial Blood pO2 at Patient Temp 71mmHg (75-108) Arterial Blood HCO3 25mmol/L (21-28) Arterial Blood Base Excess 0mmol/L (-3-3) FiO2 21 Lactic Acid Level 1.3mmol/L (0.4-2.0) Ammonia 21mcmol/L (11-34) Test 07/08/16 03:46 07/08/16 05:00 07/08/16 07:48 07/08/16 12:02 Glucose (Fingerstick) 202mg/dL (70-99) 159mg/dL (70-99) 213mg/dL (70-99) Influenza Type A Antigen Negative (NEGATIVE) Influenza Type B Antigen Negative (NEGATIVE) Test 07/08/16 16:18 07/08/16 20:13 07/09/16 04:40 07/09/16 07:56 Glucose (Fingerstick) 294mg/dL (70-99) 281mg/dL (70-99) 231mg/dL (70-99) White Blood Count 4.3x10^3/uL (4.0-11.0) Red Blood Count 3.72x10^6/uL (3.50-5.40) Hemoglobin 9.7g/dL (12.0-15.5) Hematocrit 29.8% (36.0-47.0) Mean Corpuscular Volume 80fL (79-100) Mean Corpuscular Hemoglobin 26pg (25-35) Mean Corpuscular Hemoglobin Concent 33g/dL (31-37) Red Cell Distribution Width 17.3% (11.5-14.5) Platelet Count 125x10^3/uL (140-400) Neutrophils (%) (Auto) 65% (31-73) Lymphocytes (%) (Auto) 23% (24-48) Monocytes (%) (Auto) 9% (0-9) Eosinophils (%) (Auto) 3% (0-3) Basophils (%) (Auto) 0% (0-3) Neutrophils # (Auto) 2.8x10^3uL (1.8-7.7) Lymphocytes # (Auto) 1.0x10^3/uL (1.0-4.8) Monocytes # (Auto) 0.4x10^3/uL (0.0-1.1) Eosinophils # (Auto) 0.1x10^3/uL (0.0-0.7) Basophils # (Auto) 0.0x10^3/uL (0.0-0.2) Sodium Level 140mmol/L (136-145) Potassium Level 4.7mmol/L (3.5-5.1) Chloride Level 106mmol/L (98-107) Carbon Dioxide Level 26mmol/L (21-32) Anion Gap 8 (6-14) Blood Urea Nitrogen 22mg/dL (7-20) Creatinine 0.9mg/dL (0.6-1.0) Estimated GFR (Cockcroft-Gault) 64.8 Glucose Level 244mg/dL (70-99) Calcium Level 8.8mg/dL (8.5-10.1) Laboratory Tests Test 07/08/16 12:02 07/08/16 16:18 07/08/16 20:13 07/09/16 04:40 Glucose (Fingerstick) 213mg/dL (70-99) 294mg/dL (70-99) 281mg/dL (70-99) White Blood Count 4.3x10^3/uL (4.0-11.0) Red Blood Count 3.72x10^6/uL (3.50-5.40) Hemoglobin 9.7g/dL (12.0-15.5) Hematocrit 29.8% (36.0-47.0) Mean Corpuscular Volume 80fL (79-100) Mean Corpuscular Hemoglobin 26pg (25-35) Mean Corpuscular Hemoglobin Concent 33g/dL (31-37) Red Cell Distribution Width 17.3% (11.5-14.5) Platelet Count 125x10^3/uL (140-400) Neutrophils (%) (Auto) 65% (31-73) Lymphocytes (%) (Auto) 23% (24-48) Monocytes (%) (Auto) 9% (0-9) Eosinophils (%) (Auto) 3% (0-3) Basophils (%) (Auto) 0% (0-3) Neutrophils # (Auto) 2.8x10^3uL (1.8-7.7) Lymphocytes # (Auto) 1.0x10^3/uL (1.0-4.8) Monocytes # (Auto) 0.4x10^3/uL (0.0-1.1) Eosinophils # (Auto) 0.1x10^3/uL (0.0-0.7) Basophils # (Auto) 0.0x10^3/uL (0.0-0.2) Sodium Level 140mmol/L (136-145) Potassium Level 4.7mmol/L (3.5-5.1) Chloride Level 106mmol/L (98-107) Carbon Dioxide Level 26mmol/L (21-32) Anion Gap 8 (6-14) Blood Urea Nitrogen 22mg/dL (7-20) Creatinine 0.9mg/dL (0.6-1.0) Estimated GFR (Cockcroft-Gault) 64.8 Glucose Level 244mg/dL (70-99) Calcium Level 8.8mg/dL (8.5-10.1) Test 07/09/16 07:56 Glucose (Fingerstick) 231mg/dL (70-99) Assessment and Plan note dictated DJD, tried and failed injections not interested in aspiration brace at home ok to go from my standpoint, f/u in my clinic MARBELLA Taylor II, MD Jul 09, 2016 10:05
[2016-07-09 11:00] VITALS: BP 149/92
[2016-07-09] MEDS ORDERED: GLIMEPIRIDE 2 MG TABLET PO SCH (11:00)
--- NOTE | 2016-07-09 13:43 | PDOC3 ---
Discharge Summary Visit Information Date of Admission: Jul 08, 2016 Date of Discharge: Jul 09, 2016 Admitting Diagnosis Comment: 1. FAll with mild rhabdo 2. Recurrent falls 3. EGn weakness 4. Incidental R lung nodule in R hemithorax in a smoker 5. Active smoker, down to 9-10 cigs a day 6. Obesity w ith mild to mod PCM 7. HTN 8. 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 Hx hep C Final Diagnosis Problems Medical Problems: (1) MADELIN (acute kidney injury) Status: Acute (2) Altered mental status Status: Acute (3) Generalized weakness Status: Acute Brief Hospital Course Allergies Allergies Coded Allergies Type Severity Reaction Last Updated Verified No Known Drug Allergies 12/23/15 No Vital Signs Vital Signs Date Time Temp Pulse Resp B/P Pulse Ox O2 Delivery O2 Flow Rate FiO2 07/09/16 11:26 91 Room Air 07/09/16 11:00 98.6 83 149/92 2.0 98.6 07/09/16 03:10 20 Lab Results Laboratory Tests Test 07/07/16 19:40 07/07/16 19:50 07/07/16 22:24 07/07/16 23:35 White Blood Count 6.5x10^3/uL (4.0-11.0) Red Blood Count 3.98x10^6/uL (3.50-5.40) Hemoglobin 10.5g/dL (12.0-15.5) Hematocrit 31.7% (36.0-47.0) Mean Corpuscular Volume 80fL (79-100) Mean Corpuscular Hemoglobin 26pg (25-35) Mean Corpuscular Hemoglobin Concent 33g/dL (31-37) Red Cell Distribution Width 16.9% (11.5-14.5) Platelet Count 140x10^3/uL (140-400) Neutrophils (%) (Auto) 77% (31-73) Lymphocytes (%) (Auto) 15% (24-48) Monocytes (%) (Auto) 6% (0-9) Eosinophils (%) (Auto) 1% (0-3) Basophils (%) (Auto) 1% (0-3) Neutrophils # (Auto) 5.0x10^3uL (1.8-7.7) Lymphocytes # (Auto) 1.0x10^3/uL (1.0-4.8) Monocytes # (Auto) 0.4x10^3/uL (0.0-1.1) Eosinophils # (Auto) 0.1x10^3/uL (0.0-0.7) Basophils # (Auto) 0.0x10^3/uL (0.0-0.2) Sodium Level 135mmol/L (136-145) Potassium Level 4.2mmol/L (3.5-5.1) Chloride Level 100mmol/L (98-107) Carbon Dioxide Level 26mmol/L (21-32) Anion Gap 9 (6-14) Blood Urea Nitrogen 37mg/dL (7-20) Creatinine 1.2mg/dL (0.6-1.0) Estimated GFR (Cockcroft-Gault) 46.5 BUN/Creatinine Ratio 31 (6-20) Glucose Level 379mg/dL (70-99) Calcium Level 9.4mg/dL (8.5-10.1) Total Bilirubin 0.3mg/dL (0.2-1.0) Direct Bilirubin 0.1mg/dL (0.0-0.2) Aspartate Amino Transf (AST/SGOT) 34U/L (15-37) Alanine Aminotransferase (ALT/SGPT) 41U/L (14-59) Alkaline Phosphatase 160U/L (46-116) Creatine Kinase 102U/L (26-192) Myoglobin 304ng/mL (9-82) Troponin I Quantitative < 0.017ng/mL (0.000-0.055) Total Protein 7.3g/dL (6.4-8.2) Albumin 2.6g/dL (3.4-5.0) Albumin/Globulin Ratio 0.5 (1.0-1.7) Ethyl Alcohol Level < 10mg/dL (0-10) Urine Collection Type U cath Urine Color Yellow Urine Clarity Clear Urine pH 5.0 Urine Specific Wells 1.025 Urine Protein 30mg/dL (NEG-TRACE) Urine Glucose (UA) >=1000mg/dL (NEG) Urine Ketones (Stick) Negativemg/dL (NEG) Urine Blood Small (NEG) Urine Nitrite Negative (NEG) Urine Bilirubin Negative (NEG) Urine Urobilinogen Dipstick 0.2mg/dL (0.2 mg/dL) Urine Leukocyte Esterase Negative (NEG) Urine RBC 3-5/HPF (0-2) Urine WBC 0/HPF (0-4) Urine Squamous Epithelial Cells Occ/LPF Urine Amorphous Sediment Present/HPF Urine Bacteria 0/HPF (0-FEW) Urine Opiates Screen Neg (NEG) Urine Methadone Screen Neg (NEG) Urine Barbiturates Neg (NEG) Urine Phencyclidine Screen Neg (NEG) Urine Amphetamine/Methamphetamine Neg (NEG) Urine Benzodiazepines Screen Neg (NEG) Urine Cocaine Screen Neg (NEG) Urine Cannabinoids Screen Neg (NEG) Urine Ethyl Alcohol Neg (NEG) O2 Saturation 94% (92-99) Arterial Blood pH 7.39 (7.35-7.45) Arterial Blood pCO2 at Patient Temp 42mmHg (35-46) Arterial Blood pO2 at Patient Temp 71mmHg (75-108) Arterial Blood HCO3 25mmol/L (21-28) Arterial Blood Base Excess 0mmol/L (-3-3) FiO2 21 Lactic Acid Level 1.3mmol/L (0.4-2.0) Ammonia 21mcmol/L (11-34) Test 07/08/16 03:46 07/08/16 05:00 07/08/16 07:48 07/08/16 12:02 Glucose (Fingerstick) 202mg/dL (70-99) 159mg/dL (70-99) 213mg/dL (70-99) Influenza Type A Antigen Negative (NEGATIVE) Influenza Type B Antigen Negative (NEGATIVE) Test 07/08/16 16:18 07/08/16 20:13 07/09/16 04:40 07/09/16 07:56 Glucose (Fingerstick) 294mg/dL (70-99) 281mg/dL (70-99) 231mg/dL (70-99) White Blood Count 4.3x10^3/uL (4.0-11.0) Red Blood Count 3.72x10^6/uL (3.50-5.40) Hemoglobin 9.7g/dL (12.0-15.5) Hematocrit 29.8% (36.0-47.0) Mean Corpuscular Volume 80fL (79-100) Mean Corpuscular Hemoglobin 26pg (25-35) Mean Corpuscular Hemoglobin Concent 33g/dL (31-37) Red Cell Distribution Width 17.3% (11.5-14.5) Platelet Count 125x10^3/uL (140-400) Neutrophils (%) (Auto) 65% (31-73) Lymphocytes (%) (Auto) 23% (24-48) Monocytes (%) (Auto) 9% (0-9) Eosinophils (%) (Auto) 3% (0-3) Basophils (%) (Auto) 0% (0-3) Neutrophils # (Auto) 2.8x10^3uL (1.8-7.7) Lymphocytes # (Auto) 1.0x10^3/uL (1.0-4.8) Monocytes # (Auto) 0.4x10^3/uL (0.0-1.1) Eosinophils # (Auto) 0.1x10^3/uL (0.0-0.7) Basophils # (Auto) 0.0x10^3/uL (0.0-0.2) Sodium Level 140mmol/L (136-145) Potassium Level 4.7mmol/L (3.5-5.1) Chloride Level 106mmol/L (98-107) Carbon Dioxide Level 26mmol/L (21-32) Anion Gap 8 (6-14) Blood Urea Nitrogen 22mg/dL (7-20) Creatinine 0.9mg/dL (0.6-1.0) Estimated GFR (Cockcroft-Gault) 64.8 Glucose Level 244mg/dL (70-99) Calcium Level 8.8mg/dL (8.5-10.1) Test 07/09/16 11:12 Glucose (Fingerstick) 317mg/dL (70-99) Laboratory Tests Test 07/08/16 16:18 07/08/16 20:13 07/09/16 04:40 07/09/16 07:56 Glucose (Fingerstick) 294mg/dL (70-99) 281mg/dL (70-99) 231mg/dL (70-99) White Blood Count 4.3x10^3/uL (4.0-11.0) Red Blood Count 3.72x10^6/uL (3.50-5.40) Hemoglobin 9.7g/dL (12.0-15.5) Hematocrit 29.8% (36.0-47.0) Mean Corpuscular Volume 80fL (79-100) Mean Corpuscular Hemoglobin 26pg (25-35) Mean Corpuscular Hemoglobin Concent 33g/dL (31-37) Red Cell Distribution Width 17.3% (11.5-14.5) Platelet Count 125x10^3/uL (140-400) Neutrophils (%) (Auto) 65% (31-73) Lymphocytes (%) (Auto) 23% (24-48) Monocytes (%) (Auto) 9% (0-9) Eosinophils (%) (Auto) 3% (0-3) Basophils (%) (Auto) 0% (0-3) Neutrophils # (Auto) 2.8x10^3uL (1.8-7.7) Lymphocytes # (Auto) 1.0x10^3/uL (1.0-4.8) Monocytes # (Auto) 0.4x10^3/uL (0.0-1.1) Eosinophils # (Auto) 0.1x10^3/uL (0.0-0.7) Basophils # (Auto) 0.0x10^3/uL (0.0-0.2) Sodium Level 140mmol/L (136-145) Potassium Level 4.7mmol/L (3.5-5.1) Chloride Level 106mmol/L (98-107) Carbon Dioxide Level 26mmol/L (21-32) Anion Gap 8 (6-14) Blood Urea Nitrogen 22mg/dL (7-20) Creatinine 0.9mg/dL (0.6-1.0) Estimated GFR (Cockcroft-Gault) 64.8 Glucose Level 244mg/dL (70-99) Calcium Level 8.8mg/dL (8.5-10.1) Test 07/09/16 11:12 Glucose (Fingerstick) 317mg/dL (70-99) Brief Hospital Course Ms. Kc is a 55 old [sex] who presented with [ ]55 y/o female, heavy set, lives at home with shifting care givers, yesterday she fell from chair to ground and could not get up,. caregiver had trouble helping her, pt felt she was "a nodd;e". Admitted here bec of gen weakness and element of rhabdo on labs. CPK maybe in the 200-300 range, hx hep C, COPD on home O2 24/ at 4.5 L at home, poor historian, quite unkempt. Adamant she does not want to go to rehab upon dc. Prev in the past, falls, UTI, COPD but now DOES NOT have UTI. GEtting IVF for rhabdo, Incidental lung nodule on R hemithorax that was not there in prior imaging, SMoker, down to 9-10 cigs a day - agreeable to CT scan to further evaluate. Crea 1,.2, GFR 60s Admitted overnight, Ortho consulted, DJD R knee, ff up as OP dr. Ulloa CT chest shows maybe atelectasis vs PNA. Pt lacks sxs of PNA NO need for antibiotics Dc home Pt seen and examined time 32 mins Discharge Information Condition at Discharge: Improved, Stable Disposition/Orders: D/C to Home Scheduled Albuterol Sulfate (Ventolin Hfa Inhaler) 2 PUFF INH QID (Reported) Ciprofloxacin Hcl (Cipro) 1 TAB PO BID Cyclobenzaprine Hcl (Cyclobenzaprine Hcl) 1 TAB PO TID (Reported) Doxepin Hcl (Doxepin Hcl) 1 CAP PO QHS (Reported) Folic Acid (Folic Acid) 1 TAB PO DAILY (Reported) Glimepiride (Amaryl) 1 TAB PO BID (Reported) Lisinopril (Lisinopril) 10 MG PO BID (Reported) Pregabalin (Lyrica) 75 MG PO BID (Reported) Quetiapine Fumarate (Quetiapine Fumarate) 100 MG PO HS (Reported) Sitagliptin Phosphate (Januvia) 1 TAB PO DAILY (Reported) Venlafaxine Hcl (Effexor Xr) 225 MG PO DAILY (Reported) RADHA OLIVER MD Jul 09, 2016 13:43
[2016-07-09] MEDS: ACETAMINOPHEN 325 MG TABLET. PO PRN (14:24)
--- NOTE | 2016-07-09 21:00 | CONS ---
DATE OF CONSULTATION: 07/08/2016 REFERRING PHYSICIAN: Dr. Storm. REASON FOR CONSULTATION: Acute mental status change. HISTORY OF PRESENT ILLNESS: The patient is a 55-year-old woman who was admitted to [facility] through the Emergency Room. She lives at home with care providers. She was trying to get up into her bed the day prior to admission when despite help she just could not get her legs to work and she went to the ground. Does not sound as if there was any major trauma. She has had pain of the right knee for a year. She notes no problem with the left leg, but the right leg is weak because of the pain. Normally she can get around at home even without her walker, although definitely uses her walker if she is ever out or if somebody comes such as a therapist to observe her. She denies any recent alcohol, but talks as if alcohol has been a problem in the recent past. She denies headache. She is not aware of any change in thinking. She has previously failed or had falls when she has had infections such as urinary tract infections. PAST MEDICAL HISTORY: 1. Chronic obstructive pulmonary disease. 2. Hepatitis C. 3. Longstanding type 2 diabetes. 4. Chronic left knee pain. ALLERGIES: No known allergies to drugs. MEDICATIONS PRIOR TO ADMISSION: Albuterol metered dose inhaler 2 puffs 4 times a day, Cipro 500 mg twice per day, cyclobenzaprine 10 mg, 3 times per day, doxepin 10 mg at night, folic acid 1 mg, glimepiride 4 mg twice per day, lisinopril 10 mg twice per day, Lyrica 75 mg twice per day, Seroquel 100 mg at night, sitagliptin 100 mg and venlafaxine XR 150 mg. FAMILY HISTORY: Her mother committed suicide when she was 49 years old. Alcoholism runs in the family. SOCIAL HISTORY: She continues to drink alcohol and smoke tobacco. She does not use recreational drugs. She is . She lives alone with the help of care providers. REVIEW OF SYSTEMS: She has not had any headache. There has been no change of vision or hearing. She is not aware of any cognitive changes. She has been able to eat and swallow. She does get short of breath with minimal exertion. She does not have chest or abdominal pain. She has severe pain in the right knee. She has not had any fever. She does have a rash on her bottom. She denies any gastrointestinal or genitourinary complaints. She does have numbness in her legs from diabetes. She has had altered balance. She denies any current psychiatric concerns. She does experience swelling of the knee. PHYSICAL EXAMINATION: VITAL SIGNS: The blood pressure was 154/90, pulse 101, respirations 18, temperature 97.7 degrees Fahrenheit orally. Oximetry was 93% on 2 liters nasal cannula. Her weight was 218.56 pounds, height 62 inches with a calculated body mass index of 40. GENERAL: She was alert, awake and cooperative. She seems extremely anxious. She had constant movements of the face, arms and legs. Some of these movements with her mouth appeared similar to tardive dyskinesia. She was well oriented to place, month and year. She knew the president and private branch exchange service advisor and had opinions regarding him, which were negative. She had a good fund of recent and remote knowledge. Attention and concentration was intact. At this point, her grooming appeared fair. She appeared well nourished. NEUROLOGIC: Examination of the cranial nerves revealed visual [place] were full to confrontation. Extraocular movements were intact. The eyes were conjugate. Pursuit movements were smooth and saccadic eye movements were without dysmetria. There was no nystagmus. Pupils were 3 mm. Funduscopic exam did not reveal papilledema. Facial sensation was intact bilaterally. The muscles of mastication and facial expression were powerful symmetrically. Hearing was intact to finger rub. The palate arches symmetrically and the tongue was midline with full range of motion. Sternocleidomastoid and trapezius were powerful. Muscle bulk and tone was normal. The right leg was not as testable because of the severe knee pain. Touching the right knee or bending it in any way caused her to be in absolutely severe pain. When I isolated out the joint; however, the strength was quite powerful in the right hip and in the ankle. Left leg was powerful as were both arms. Reflexes were 1/4 in the upper extremities, 1/4 in the left knee, not testable in the right knee and absent at the ankles. Toes were not upgoing. Coordination testing with [id number], left leg [id number], fine motor and rapid movements were fairly well performed. There was an intention tremor with the left arm [id number], but not the right. Sensory examination was intact to pain, light touch, proprioception, graphesthesia, cold, thermal and vibration in the upper extremities. There was marked sensory shading in both legs with sharp, not being perceived till two thirds of the calf. Proprioception was impaired. Cold, thermal was markedly diminished. Vibration was better perceived at the knee than in the foot. Gait was not testable. Auscultation of the carotid arteries did not reveal a bruit. Heart rhythm was regular without a murmur. Peripheral pulses were symmetric at the wrists and feet. REVIEW OF LABORATORY DATA: CBC revealed a normal white blood cell count and platelet count. Hemoglobin was low at 10.5 and hematocrit at 31.7. The finger stick capillary glucose was 294 this afternoon. Ammonia level was 21. Sodium was low at 135. Creatinine was 1.2 and BUN 37. Glucose on admission was 379. Alkaline phosphatase was elevated at 155, but the remainder of the liver enzymes were not elevated. Total protein was normal, but albumin was low at 2.6. Troponin was not elevated. Myoglobin was elevated at 304. CPK was normal at 102. Urine drug screen was negative. Alcohol was not detected. Urinalysis revealed 30 mg/dL of protein, greater than 1000 glucose, small amount of blood, 3-5 red blood cells, no white blood cells, occasional squamous epithelial cells and no bacteria. Influenza screening was negative. An arterial blood gas revealed a pH of 7.39, pCO2 of 42, pO2 of 71 and bicarbonate of 25 on room air. She has undergone a CT scan of the head and cervical spine, which were not revealing. There was no bony abnormality that was acute in the neck. There was no acute intracranial process. She also had a CT scan of chest, which revealed atelectasis, scar or pneumonia in the right middle lobe. She had ankle, knee and hip x-rays, which did not reveal a fracture. IMPRESSION: The patient is a very pleasant 55-year-old woman who I am asked to see for mental status changes. I did not detect any mental status changes at this time. She was well oriented, follows command well and has good attention. She may have previously been exposed to antipsychotics and she does seem to have some dystonia and dyskinesia. Some of this could be her overall level of anxiety, which does seem high. It sounds as if she does occasionally use alcohol or could be more than occasionally, but she denies any alcohol over the last week. The primary issue with her leg weakness deals with severe pain of the right knee. When the knee is isolated out, the strength in her right hip and ankle are very powerful. I did not see evidence for stroke. It would be very reasonable to try to address the knee through an orthopedic consult. With her severe lung disease, she would likely not be a candidate for surgery, but potentially would be for ejection. I appreciate being involved in her care. JESSICA NJ MD DR: PETE/juana JOB#: [id number] / [id number] ALEKSEY Berman MD, FERILYN MD XIE, CHUNMEI MD
--- NOTE | 2016-07-10 01:49 | CONS ---
DATE OF CONSULTATION: 07/09/2016 REFERRING PROVIDER: Dr. Storm. CONSULTING PROVIDER: Leon Caldwell MD REASON FOR CONSULTATION: Right knee pain and swelling. CHIEF COMPLAINT: Right knee pain. HISTORY OF PRESENT ILLNESS: The patient is a 55-year-old female when she had a fall yesterday and had trouble getting up, she was admitted here because of generalized weakness and some evidence of rhabdomyolsis on labs. She tells me that she has a long history of knee pain, certainly about a year ago and the pain and swelling come and go depending on her activity level. She has had multiple injections including corticosteroid and viscosupplementation as well as aspirations in the past. The injections have not given her any long-term relief. She has also tried some different types of knee braces, and these helped a little bit. ALLERGIES: None. MEDICATIONS: Reviewed, please see MRAD. SOCIAL HISTORY: She lives at home. She does smoke. She does use alcohol and marijuana. PAST SURGICAL HISTORY: None. FAMILY HISTORY: Noncontributory. PAST MEDICAL HISTORY: Hypertension, low back pain, diabetes. PHYSICAL EXAMINATION: VITAL SIGNS: Reviewed. Afebrile. GENERAL: The patient is alert and oriented. Speech is clear. Mood and affect are appropriate. HEENT: Head normocephalic, atraumatic. Extraocular muscles are intact. CARDIOVASCULAR: Regular rate and rhythm. Dorsalis pedis 2+. No edema at her ankles. LUNGS: Respirations are unlabored with symmetric chest rise. ABDOMEN: Obese and soft. EXTREMITIES: Examination of the bilateral lower extremities reveals valgus deformities of bilateral knees. EHL and FHL 5/5. She does have an effusion at her right knee. She is tender globally around her right knee. She does have pseudolaxity to testing on her LCL. MCL is intact. Negative Jeanine. Range of motion is 10 degrees to 100 degrees currently. IMAGING: Hip and pelvis x-ray, knee x-ray, ankle x-ray were interpreted by myself. Reports were also reviewed. She has degenerative changes present at her knee. Mild degenerative changes present at both hips. She has had some disk disease at lower lumbar level. IMPRESSION: 1. Generalized weakness. 2. Right knee degenerative joint disease. PLAN: Another corticosteroid injection or aspiration may help her pain. She was not interested as she has not had good luck with this in the past. She has tried and failed viscosupplementation as well. We will follow with her in clinic and work to decrease her modifiable risk factors and consider total knee down the road. Per my standpoint, she can be discharged and follow up with me in clinic. LEON CALDWELL MD DR: CELENA/juana JOB#: [id number] / [id number] ANNIA
== END 2016-07-09 16:22 | disposition home or self-care (01) | DRG 682 ==
LOC: ER 19:04 → 5 NORTH 07-08 00:29
PROVIDERS: ADMIT Internal Medicine; ATTEND Internal Medicine
DX: N17.9 Acute kidney failure, unspecified (principal); G92 Toxic encephalopathy; M62.82 Rhabdomyolysis; E44.0 Moderate protein-calorie malnutrition; E11.65 Type 2 diabetes mellitus with hyperglycemia; E66.9 Obesity, unspecified; F17.200 Nicotine dependence, unspecified, uncomplicated; F41.9 Anxiety disorder, unspecified; G25.2 Other specified forms of tremor; I10 Essential (primary) hypertension; J44.9 Chronic obstructive pulmonary disease, unspecified; M17.11 Unilateral primary osteoarthritis, right knee; R29.6 Repeated falls; W07.XXXA Fall from chair, initial encounter; G89.29 Other chronic pain; M25.562 Pain in left knee; Z68.39 Body mass index [BMI] 39.0-39.9, adult; Z99.81 Dependence on supplemental oxygen
CPT/HCPCS: 36415; 36600; 70450; 71010; 71260; 72125; 73521; 73562; 73610; 80048; 80053; 80076; 81001; 82140; 82550; 82805; 82947; 83605; 83874; 84484; 85027; 87804; 93005; 94250; 94640; 94760; 96360; G0480; G0481; J1815; J7030; J7040; Q0144; Q9967; 99285-25